=== PATIENT | male | born 1990 ===

== ENCOUNTER 2017-01-09 05:27 | Inpatient (IN) | payer OTHER ==
[~2017-01-09] VITALS: Ht 188 cm; Wt 90.9 kg
[2017-01-09] VITALS (12 sets, daily range): BP systolic 116–135; BP diastolic 50–90; PULSE 76–102; TEMP 98.3–102.1
[2017-01-10] VITALS (7 sets, daily range): BP systolic 133–156; BP diastolic 64–88; PULSE 75–103; TEMP 97.3–99.1
[2017-01-10 06:55] LABS: HEMATOCRIT 43.7 % (42.0-52.0); HEMOGLOBIN 14.9 g/dl (13.5-18.0); MEAN CELL VOLUME 89 fl (80.0-100.0); MEAN CORPUSCULAR HEMOGLOBIN 30 pg (27.0-31.0); MEAN CORPUSCULAR HGB CONC 34 g/dl (33.0-37.0); MEAN PLATELET VOLUME 9.8 fl (7.4-10.4); PLATELET COUNT 215 K/mm3 (130-400); RED BLOOD COUNT 4.91 M/mm3 (4.20-5.60); REDCELL DISTRIBUTION WIDTH-CV 11.8 % (11.5-14.5); WHITE BLOOD COUNT 16.1 K/mm3 (4.8-10.8)
[2017-01-10 07:09] LABS: CALCIUM 9.2 mg/dL (8.4-10.2); CREATININE, serum 0.78 mg/dL (0.66-1.25); POTASSIUM 3.8 mmol/L (3.4-5.0)
[2017-01-11 01:12] VITALS: BP 180/78; PULSE 95; TEMP 99
[2017-01-11 10:17] VITALS: BP 157/77; PULSE 98; TEMP 99.2
[2017-01-11 14:21] VITALS: BP 128/35; BP 150/79; PULSE 64; PULSE 99; TEMP 98.3
[2017-01-11 18:25] VITALS: BP 149/76; PULSE 99; TEMP 99.8
[2017-01-11 21:57] VITALS: BP 141/72; PULSE 94; TEMP 99.6
[2017-01-12 01:11] VITALS: BP 139/72; PULSE 91; TEMP 99.5
[2017-01-12 05:39] VITALS: BP 131/71; PULSE 98; TEMP 99.6
[2017-01-12 07:50] LABS: HEMATOCRIT 38.9 % (42.0-52.0); HEMOGLOBIN 13.1 g/dl (13.5-18.0); MEAN CELL VOLUME 89 fl (80.0-100.0); MEAN CORPUSCULAR HEMOGLOBIN 30 pg (27.0-31.0); MEAN CORPUSCULAR HGB CONC 34 g/dl (33.0-37.0); MEAN PLATELET VOLUME 9.6 fl (7.4-10.4); PLATELET COUNT 237 K/mm3 (130-400); RED BLOOD COUNT 4.35 M/mm3 (4.20-5.60); REDCELL DISTRIBUTION WIDTH-CV 11.7 % (11.5-14.5); WHITE BLOOD COUNT 8.4 K/mm3 (4.8-10.8)
[2017-01-12 08:01] LABS: CALCIUM 8.8 mg/dL (8.4-10.2); CREATININE, serum 0.77 mg/dL (0.66-1.25); POTASSIUM 3.6 mmol/L (3.4-5.0)
[2017-01-12 10:09] VITALS: BP 142/73; PULSE 89; TEMP 98.4
[2017-01-12 14:34] VITALS: BP 141/79; PULSE 88; TEMP 99.3
[2017-01-12 17:42] VITALS: BP 157/84; PULSE 90
[2017-01-12 21:58] VITALS: BP 147/81; PULSE 112; TEMP 99.9
[2017-01-13 02:02] VITALS: BP 137/76; PULSE 92; TEMP 99.2
[2017-01-13 05:32] VITALS: BP 137/74; PULSE 85; TEMP 98.5
[2017-01-13 09:52] VITALS: BP 142/81; PULSE 87; TEMP 99.5
[2017-01-13 14:12] VITALS: BP 118/78; PULSE 84; TEMP 98.4
[2017-01-13 17:56] VITALS: BP 141/83; PULSE 80; TEMP 98.8
[2017-01-13 21:41] VITALS: BP 141/74; PULSE 78; TEMP 98.4
[2017-01-14 01:51] VITALS: BP 149/73; PULSE 90; TEMP 99.7
[2017-01-14 05:44] VITALS: BP 139/74; BP 151/75; PULSE 85; PULSE 95; TEMP 98.2; TEMP 98.5
[2017-01-14 07:35] LABS: HEMATOCRIT 39.2 % (42.0-52.0); HEMOGLOBIN 13.7 g/dl (13.5-18.0); MEAN CELL VOLUME 88 fl (80.0-100.0); MEAN CORPUSCULAR HEMOGLOBIN 31 pg (27.0-31.0); MEAN CORPUSCULAR HGB CONC 35 g/dl (33.0-37.0); MEAN PLATELET VOLUME 9.2 fl (7.4-10.4); PLATELET COUNT 290 K/mm3 (130-400); RED BLOOD COUNT 4.46 M/mm3 (4.20-5.60); REDCELL DISTRIBUTION WIDTH-CV 11.5 % (11.5-14.5); WHITE BLOOD COUNT 11.6 K/mm3 (4.8-10.8)
[2017-01-14 07:56] LABS: CALCIUM 9.3 mg/dL (8.4-10.2); CREATININE, serum 0.7 mg/dL (0.66-1.25); POTASSIUM 3.8 mmol/L (3.4-5.0)
[2017-01-14 09:44] VITALS: BP 134/80; PULSE 88; TEMP 97.9
== END 2017-01-14 13:13 | disposition home or self-care (01) | DRG 340 ==
LOC: SURG 05:27
PROVIDERS: Surgery
PROC: 0DTJ4ZZ Resection of Appendix, Percutaneous Endoscopic Approach (ICD-10-PCS; principal; 2017-01-09 11:00)
DX: K35.2 Acute appendicitis with generalized peritonitis (principal)
CPT/HCPCS: G0378; J0696; J1100; J1885; J2270; J2405; J2550; J2704; J7030; J7120